=== PATIENT | male | born 1950 | race American Indian/Alaskan Native ===

== ENCOUNTER 2017-11-19 15:09 | Outpatient (CLI) | payer BC ==
--- NOTE | 2017-11-19 18:06 | XRay Report ---
FINAL REPORT PROCEDURE: XR SHOULDER 2+V LT TECHNIQUE: Left shoulder, three views HISTORY: PAIN L SHOULDER COMPARISON: No prior studies are available for comparison. FINDINGS: No acute fracture or dislocation is seen. No focal osseous lesions are identified. There is mild acromioclavicular joint space narrowing. IMPRESSION: No acute osseous abnormality is identified
== END 2017-11-19 15:10 | disposition home or self-care (01) ==
LOC: XRAY 15:09
PROVIDERS: ATTEND Internal Medicine Hematology & Oncology
DX: M25.212 Flail joint, left shoulder (principal); M25.512 Pain in left shoulder

== ENCOUNTER 2018-12-15 08:24 | Outpatient (CLI) | payer BC | END 2018-12-15 08:25 | disposition home or self-care (01) | LOC: ECHO 08:24 | PROVIDERS: ATTEND Internal Medicine Hematology & Oncology | DX: I34.0 Nonrheumatic mitral (valve) insufficiency (principal); I07.1 Rheumatic tricuspid insufficiency | CPT/HCPCS: 93306 ==